=== PATIENT | female | born 1985 | race Caucasian/White ===

== ENCOUNTER 2019-09-29 14:37 | Emergency (ER) | payer SELFPAY ==
--- NOTE | ~2019-09-29 | CT_ITS ---
EXAMINATION: CT abdomen pelvis wo con EXAM DATE: 09/29/2019 15:49 INDICATION: Nausea, diarrhea. Generalized abdominal pain. TECHNIQUE: Spiral CT of the abdomen and pelvis was performed without contrast. Axial, coronal and s agittal images were reviewed. The dose-length product (DLP) for this examination was 1455.45 mGy-cm. The exposure was tailored according to patient size (auto mA exposure control), and iterative recon struction (ASIR) was used as additional dose reduction technique. Comparison is made to prior examina tion from 05/31/2013. FINDINGS: The liver, spleen, adrenal glands and pancreas are unremarkable. Gallbladder is unremarkab le. No biliary obstruction. There is no nephrolithiasis or hydronephrosis. The uterus is unremark able. The bladder is unremarkable. There is no retroperitoneal or pelvic lymphadenopathy. Small umbilical fat-containing hernia, a small pocket of fluid probably in the umbilicus. The appendix is normal. The stomach and small bowel are unremarkable. There is expected amount of c olonic stool. No free intraperitoneal gas. The heart is normal in size. There are no pericardial or pleural effusions. The lung bases are unremarkable. The bones are unremarkable. IMPRESSION: 1. No acute intra-abdominal findings. Reviewed, dictated and finalized at location A.
[2019-09-29 14:39] VITALS: BP 160/104; PULSE 109; RESP 18; TEMP 37.1; O2SAT 100
[2019-09-29 15:16] LABS: Basophils Percent Auto 0.3 % (0.2-1.2); Eosinophils Absolute Auto 0.1 K/mm3 (0-0.3); Eosinophils Percent Auto 0.7 % (0-4.4); Immature Granulocyte Absolute 0.04 K/mm3 (0.00-0.031); Immature Granulocyte Percent A 0.4 % (0-0.5); Lymphocytes Absolute Auto 2.53 K/mm3 (0.9-3.2); Lymphocytes Percent Auto 22.9 % (18.3-44.2); Mean Corpuscular HGB Conc 31.7 g/dl (32-36); Mean Corpuscular Hemoglobin 26.9 pg (26-34); Mean Corpuscular Volume 84.9 fl (80-100); Mean Platelet Volume 12.3 fl (7.4-10.4); Monocytes Absolute Auto 0.6 K/mm3 (0.1-0.6); Monocytes Percent Auto 5.7 % (2.6-8.5); Neutrophils Absolute Auto 7.8 K/mm3 (1.3-6.7); Platelet Count Result 290 k/mm3 (150-375); Red Blood Count 4.83 M/mm3 (4.2-5.4); Red Cell Distribution Width 13.6 % (11.5-14.5); White Blood Count 11.1 K/mm3 (4.5-10.0)
[2019-09-29 15:20] LABS: Add Urine Microscopic? YES; Appearance Urine Cloudy (Clear); Bacteria Urine Trace /hpf; Bilirubin Urine Negative (Negative); Blood Urine Negative (Negative); Color Urine Yellow (Yellow); Glucose Urine UA Negative (Negative); Ketones Urine Negative (Negative); Leukocyte Esterase Ur 2+ LEU/UL (Negative); Mucus Urine Rare /lpf; Nitrate Urine Negative (Negative); Protein Urine Negative (Negative); RBC Urine 0-2 /hpf (0-2); Specific Grav Ur 1.026 (1.001-1.035); Squamous Epithelial Cell Urine Many /hpf (Few); Urobilinogen Urine Negative mg/dL (<2.0); WBC Urine 16-20 /hpf
[2019-09-29 15:29] LABS: Alanine Aminotransferase 13 U/L (4-35); Albumin Level 4.3 g/dL (3.5-5.1); Alkaline Phosphatase 98 U/L (38-126); Aspartate Amino Transferase 19 U/L (14-36); Bilirubin,Total 0.2 mg/dL (0.2-1.3); Blood Urea Nitrogen 14 mg/dL (7-17); Calcium 9.3 mg/dL (8.4-10.2); Carbon Dioxide 28 mmol/L (22-30); Chloride 105 mmol/L (98-107); Estimated CRCL calculation 123 ml/min; Estimated Glomerular Filt Rate > 60; Glucose 94 mg/dL (65-105); Lipase 56 U/L (23-300); Potassium 3.7 mmol/L (3.4-5.0); Sodium 138 mmol/L (137-145)
--- NOTE | 2019-09-29 15:30 | ED.ABDPAIN ---
HPI - Abdominal Pain General Chief Complaint: Abdominal Pain Stated Complaint: abdominal pain Time Seen by Provider: 09/29/19 14:47 Source: RN notes reviewed History of Present Illness HPI narrative: Patient presents emergency department from home for abdominal pain. Patient states that for the past month she has been having intermittent abdominal pain. Patient states the pain is described as a pressure across her upper abdomen associated with diarrhea and nausea. She states that no current pain at this time she was seen by her PCP and had blood work-up but no imaging. She denies any fevers or chills shortness of breath or any other symptoms at this time Related Data Home Medications Medication Instructions Recorded Confirmed cholecalciferol (vitamin D3) 25 mcg PO DAILY 09/29/19 [Vitamin D3] ergocalciferol (vitamin D2) 1,250 mcg PO WEEKLY 09/29/19 sertraline 25 mg PO DAILY 09/29/19 Allergies Allergy/AdvReac Type Severity Reaction Status Date / Time iodine Allergy Mild Hives Verified 09/29/19 14:42 Iodinated Contrast Media Allergy Unknown Hives Verified 09/29/19 14:42 Contrast Media Allergy Unknown Hives Uncoded 09/29/19 14:42 Review of Systems Review of Systems: Narrative: Gen.: Denies fevers or chills ENT: Denies congestion Respiratory: Denies shortness of breath or cough CV: Denies chest pain or palpitations GI: See HPI denies burning, urgency, frequency or hematuria Musculoskeletal: Denies back pain or muscle pain Neuro: Denies numbness, tingling, weakness or focal weakness Skin: Denies rash Except as documented, all other systems reviewed and negative PMF Past Medical History Medical History (Updated 09/29/19 @ 16:51 by Huseyin No DO) Patient denies significant medical history Family History Family History (Updated 01/03/14 @ 07:13 by DOCTOR UNKNOWN) Mother Family history of mental disorder Depression Hypertension Family history of elevated blood lipids Father Hypertension Malignant neoplasm of prostate Grandparent Carcinoma of colon Family history of lung cancer Family history of malignant neoplasm of brain Diabetes mellitus Acute myocardial infarction Social History Social History (Updated 09/29/19 @ 15:31 by Huseyin No DO) Smoking status: Never smoker Alcohol intake: never Exam Narrative: Exam Narrative: APPEARANCE: No acute distress, nontoxic, resting in bed HEENT: Normocephalic, atraumatic, OMM RESPIRATORY: No respiratory distress, clear to auscultation bilaterally with no rhonchi wheezing or rales CARDIOVASCULAR: RRR s murmur ABDOMINAL: Soft, nondistended, tender palpation in right upper quadrant, no tenderness left lower quadrant right lower quadrant left lower quadrant no rebound or guarding MUSCULOSKELETAl: Moves all extremities. No clubbing, cyanosis or edema. NEURO: Awake and alert. Following commands, speech normal, no focal deficits SKIN:: Warm, dry. Normal Color PSYCHIATRIC: Normal affect/mood Course Course Emergency Course: . Repeat abdominal exam shows the patient's abdomen to be soft and nontender. Discussed with patient results of workup and diagnosis. Discussed need for follow-up with primary care physician, reasons to return to the emergency department in proper use of medication. Patient understands and agrees to current treatment plan Vital Signs Vital signs: Vital Signs Temperature 98.7 F 09/29/19 14:39 Pulse Rate 109 H 09/29/19 14:39 Respiratory Rate 18 09/29/19 14:39 Blood Pressure 160/104 H 09/29/19 14:39 Pulse Oximetry 100 09/29/19 14:39 Temperature 98.7 F 09/29/19 14:39 Pulse Rate 109 H 09/29/19 14:39 Respiratory Rate 18 09/29/19 14:39 Blood Pressure 160/104 H 09/29/19 14:39 Pulse Oximetry 100 09/29/19 14:39 MDM - Abdominal Pain MDM Narrative Medical decision making narrative: Patient's abdomen is soft without significant pain or signs of surgical abdomen on serial exams. Lab
--- NOTE | 2019-09-29 16:14 | ECG_ITS ---
Measurements Intervals [place] Rate: 84 P: 40 SD: 162 QRS: 31 QRSD: 96 T: 17 QT: 343 QTc: 406 Interpretive Statements SINUS RHYTHM INCOMPLETE RIGHT BUNDLE BRANCH BLOCK BASELINE ARTIFACT- I, II, AVR BORDERLINE ECG Electronically Signed On 09-29-2019 16:40:40 CDT by Conrad Lantigua D.O.
[2019-09-29] MEDS: NITROFURANTOIN MONOHYD MACROCR 100 MG CAP PO (17:00)
[2019-09-29 17:10] VITALS: BP 148/97; PULSE 76; RESP 18; O2SAT 98
== END 2019-09-29 17:12 | disposition home or self-care (01) ==
PROVIDERS: Emergency Provider Emergency Medicine; PCP Physician Assistant
DX: N39.0 Urinary tract infection, site not specified (principal); R10.10 Upper abdominal pain, unspecified; I45.10 Unspecified right bundle-branch block
CPT/HCPCS: 36415; 74176; 80053; 81001; 81025; 83690; 85025; 87086; 87088; 93005; 99284; A9270

== ENCOUNTER 2020-01-04 12:27 | Emergency (ER) | payer SELFPAY ==
[2020-01-04 12:35] VITALS: BP 135/82; PULSE 88; RESP 16; TEMP 36.9; O2SAT 100
--- NOTE | 2020-01-04 12:54 | ED.URI ---
HPI - URI/Sore Throat General Chief Complaint: Upper Respiratory Infection Stated Complaint: sore throat/fever Source: patient Mode of arrival: ambulatory Limitations: no limitations History of Present Illness HPI Narrative: Patient is a 34-year-old female who presents complaining of sore throat, fever, rhinorrhea and ear pain x2 to 3 days. She reports mild body aches. Denies cough, shortness of breath, nausea, vomiting or diarrhea. She denies any known exposure to COVID. She reports taking [id number] meds MD elicited complaint: sore throat Related Data Home Medications Medication Instructions Recorded Confirmed cholecalciferol (vitamin D3) 25 mcg PO DAILY 09/29/19 01/04/20 [Vitamin D3] sertraline 25 mg PO DAILY 09/29/19 01/04/20 Allergies Allergy/AdvReac Type Severity Reaction Status Date / Time iodine Allergy Mild Hives Verified 01/04/20 12:43 Iodinated Contrast Media Allergy Unknown Hives Verified 01/04/20 12:43 Contrast Media Allergy Unknown Hives Uncoded 09/29/19 14:42 Review of Systems Review of Systems: Narrative: CONSTITUTIONAL: Denies fever, chills, or sweats. EYES: Denies visual changes, redness, or discharge. ENT: Reports rhinorrhea, congestion, sore throat, and bilateral otalgia. CARDIOVASCULAR: Denies chest pain, palpitations, or edema. RESPIRATORY: Denies cough or dyspnea. GASTROINTESTINAL: Denies abdominal pain, nausea, vomiting, or diarrhea. GENITOURINARY: Denies dysuria or hematuria. SKIN: Denies rash or itching. MUSCULOSKELETAL: Denies back pain, joint pain, or myalgia. NEUROLOGIC: Denies headache, numbness, dizziness, or weakness. PSYCHIATRIC: Denies anxiety or depression. [facility] Past Medical History Medical History Patient denies significant medical history Family History Family History Mother Family history of mental disorder Depression Hypertension Family history of elevated blood lipids Father Hypertension Malignant neoplasm of prostate Grandparent Carcinoma of colon Family history of lung cancer Family history of malignant neoplasm of brain Diabetes mellitus Acute myocardial infarction Social History Social History Smoking status: Never smoker Alcohol intake: never Exam Narrative: Exam Narrative: GENERAL: Well-appearing, well-nourished, and in no acute distress. HEAD: Normocephalic, atraumatic. EYES: EOMI. No redness or drainage. Conjunctiva are normal. ENT: Mucous membranes pink and moist. Nares clear. Clear rhinorrhea. TMs normal bilaterally. Throat mild erythema, no edema or exudate l. Uvula midline. NECK: AROM. Supple. No lymphadenopathy. CHEST: No respiratory distress. Clear to auscultation. HEART: Regular rate and rhythm. No murmur appreciated. Normal peripheral pulses. EXTREMITIES: Normal range of motion. No edema. SKIN: Warm, dry, no rash. NEURO: No focal deficits. Alert and oriented x3. Gait steady. PSYCH: Normal affect. No signs of depression or anxiety. Course Vital Signs Vital signs: Vital Signs Temperature 36.9 C 01/04/20 12:35 Pulse Rate 88 01/04/20 12:35 Respiratory Rate 16 01/04/20 12:35 Blood Pressure 135/82 01/04/20 12:35 Pulse Oximetry 100 01/04/20 12:35 Temperature 36.9 C 01/04/20 12:35 Pulse Rate 88 01/04/20 12:35 Respiratory Rate 16 01/04/20 12:35 Blood Pressure 135/82 01/04/20 12:35 Pulse Oximetry 100 01/04/20 12:35 Reviewed. Patient has been instructed to follow-up with her PCP regarding her blood pressure. MDM - URI/Sore Throat MDM Narrative Medical decision making narrative: Patient's rapid strep negative. Patient to have COVID testing. Patient aware of quarantining, scheduling of COVID testing to be completed by registration. Patient is stable for discharge home with outpatient follow-up as needed. Dif
== END 2020-01-04 13:16 | disposition home or self-care (01) ==
PROVIDERS: Emergency Provider Nurse Practitioner; PCP Physician Assistant
DX: J06.9 Acute upper respiratory infection, unspecified (principal); Z20.828 Contact with and (suspected) exposure to other viral communicable diseases
CPT/HCPCS: 87081; 87880; 99213; G0463

== ENCOUNTER 2020-03-11 18:59 | Emergency (ER) | payer SELFPAY ==
--- NOTE | ~2020-03-11 | XR_ITS ---
EXAMINATION: XR chest 2V DATE: 03/11/2020 20:04 INDICATION: Chest pain. Palpitations. TECHNIQUE: Frontal and lateral views of the chest were obtained. COMPARISON: Chest 2 views 03/15/2016, CT abdomen and pelvis 09/29/2019 FINDINGS: The chest demonstrates clear lungs without pneumonia, pleural effusion, or pneumothorax. Th e heart size is normal. IMPRESSION: 1. No acute cardiopulmonary disease. Reviewed, dictated and finalized at location A. IESEL PRODUCT MANAGER
[2020-03-11 19:02] VITALS: BP 165/102; PULSE 113; RESP 18; TEMP 36.4; O2SAT 100
--- NOTE | 2020-03-11 19:05 | ECG_ITS ---
Measurements Intervals [place] Rate: 96 P: 33 SC: 142 QRS: 31 QRSD: 93 T: 26 QT: 333 QTc: 421 Interpretive Statements SINUS RHYTHM NORMAL ECG Electronically Signed On 03-11-2020 19:21:26 ELECTRIC REFRIGERATOR SERVICER by Conrad Lantigua D.O.
[2020-03-11 19:16] LABS: Basophils Percent Auto 0.3 % (0.2-1.2); Eosinophils Absolute Auto 0.2 K/mm3 (0-0.3); Eosinophils Percent Auto 1.6 % (0-4.4); Hematocrit 42.1 % (37.0-47.0); Hemoglobin 13.6 g/dL (12.0-15.0); Immature Granulocyte Absolute 0.04 K/mm3 (0.00-0.031); Immature Granulocyte Percent A 0.4 % (0-0.5); Lymphocytes Absolute Auto 2.69 K/mm3 (0.9-3.2); Lymphocytes Percent Auto 27.3 % (18.3-44.2); Mean Corpuscular HGB Conc 32.3 g/dl (32-36); Mean Corpuscular Hemoglobin 27.4 pg (26-34); Mean Corpuscular Volume 84.9 fl (80-100); Mean Platelet Volume 11.1 fl (7.4-10.4); Monocytes Absolute Auto 0.7 K/mm3 (0.1-0.6); Neutrophils Absolute Auto 6.3 K/mm3 (1.3-6.7); Neutrophils Percent Auto 63.4 % (45.5-73.1); Platelet Count Result 280 k/mm3 (150-375); Red Blood Count 4.96 M/mm3 (4.2-5.4); Red Cell Distribution Width 13.4 % (11.5-14.5); White Blood Count 9.9 K/mm3 (4.5-10.0)
[2020-03-11 19:32] LABS: Anion Gap 10 mmol/L (8-16); Blood Urea Nitrogen 16 mg/dL (7-17); Calcium 9.5 mg/dL (8.4-10.2); Carbon Dioxide 27 mmol/L (22-30); Chloride 102 mmol/L (98-107); Estimated CRCL calculation 136 ml/min; Estimated Glomerular Filt Rate > 60; Glucose 110 mg/dL (65-105); Potassium 3.8 mmol/L (3.4-5.0); Sodium 139 mmol/L (137-145)
[2020-03-11 19:33] LABS: Prothrombin Time 13.7 Seconds (11.1-14.7)
[2020-03-11 19:34] LABS: Partial Thromboplastin Time 29.8 SECONDS (22.3-36.8)
[2020-03-11 19:52] LABS: Troponin I < 0.012 ng/mL (0.000-0.034)
--- NOTE | 2020-03-11 20:00 | ED.CHESTPAIN ---
HPI - Chest Pain General Chief Complaint: Chest Pain Stated Complaint: dizzy, high blood pressure, chest pain Time Seen by Provider: 03/11/20 20:00 Source: patient Mode of arrival: ambulatory Limitations: no limitations History of Present Illness HPI narrative: Patient is a 35-year-old female with a history of anxiety who presents for evaluation of chest pain, dizziness, anxiety. Patient states that she has felt unwell over the past several months, especially over the past 2 months she has had intermittent chest pain with intermittent dizziness. Patient states that she noticed her blood pressure was high this evening after checking it at home, this made her anxiety increased which made her chest pain worsen. Patient currently denies any chest pain or shortness of breath. Dizziness is mild. Patient was able to drive herself to the ER and has been able to ambulate without difficulty. She denies vision changes, focal numbness, headache. She denies any current chest pain or shortness of breath. Patient states she has had work-ups done by her primary care physician as well as a concrete batch plant operator recently that have all been negative. She denies leg swelling, calf pain. No recent fever, chills, loss of sense of taste or smell recent sick contacts. Related Data Home Medications Medication Instructions Recorded Confirmed cholecalciferol (vitamin D3) 25 mcg PO DAILY 09/29/19 01/04/20 [Vitamin D3] sertraline 25 mg PO DAILY 09/29/19 01/04/20 Allergies Allergy/AdvReac Type Severity Reaction Status Date / Time iodine Allergy Mild Hives Verified 01/04/20 12:43 Iodinated Contrast Media Allergy Unknown Hives Verified 01/04/20 12:43 Contrast Media Allergy Unknown Hives Uncoded 09/29/19 14:42 Review of Systems Review of Systems: Narrative: CONSTITUTIONAL: Denies fever, chills, or sweats. EYES: Denies visual changes, redness, or discharge. ENT: Denies rhinorrhea, congestion, sore throat, or otalgia. CARDIOVASCULAR: Denies current chest pain, palpitations, or edema. RESPIRATORY: Denies cough or dyspnea. GASTROINTESTINAL: Denies abdominal pain, nausea, vomiting, or diarrhea. GENITOURINARY: Denies dysuria or hematuria. SKIN: Denies rash or itching. MUSCULOSKELETAL: Denies back pain, joint pain, or myalgia. NEUROLOGIC: Denies headache, numbness, or weakness. Reports mild dizziness. No spinning sensation. [facility] Past Medical History Medical History Anxiety Patient denies significant medical history Family History Family History Mother Family history of mental disorder Depression Hypertension Family history of elevated blood lipids Father Hypertension Malignant neoplasm of prostate Grandparent Carcinoma of colon Family history of lung cancer Family history of malignant neoplasm of brain Diabetes mellitus Acute myocardial infarction Social History Social History Smoking status: Never smoker Alcohol intake: never Exam Narrative: Exam Narrative: GENERAL: Awake, alert, conversant HEAD: Normocephalic, atraumatic. EYES: PERRLA and EOMI. ENT: Nares clear, no rhinorrhea or epistaxis. Mucous membranes moist. NECK: Supple. CHEST: No respiratory distress, breathing even and non labored HEART: Regular rate, sinus rhythm ABDOMEN:Non distended, non tender EXTREMITIES: Normal range of motion. No edema. SKIN: Warm, dry, no rash. NEURO:No focal deficits. Alert and oriented x3. Finger to nose intact bilaterally. EOMs intact without nystagmus. No facial droop/asymmetry noted bilaterally. Grimace intact. Intact sensation in face. Hearing intact bilaterally. Shoulder shrug intact. Strength 5/5 bilateral upper extremities. Strength 5/5 bilateral lower extremities. Reflexes 2+ patellar. Heel to roman intact bilaterally. Ambulatory with a narrow base, steady gait. No ataxia.
[2020-03-11] MEDS: ASPIRIN 81 MG CHEWABLE TABLET 324 MG PO (20:35)
[2020-03-11] MEDS: MECLIZINE HCL 25 MG TABLET PO (20:40)
[2020-03-11 20:43] VITALS: BP 131/93; PULSE 80; RESP 18; O2SAT 99
[2020-03-11 20:55] LABS: D Dimer 0.35 ug/mL (<0.48)
[2020-03-11] MEDS: SODIUM CHLORIDE 0.9% IV 1,000 ML 999 ML IV CONT (21:04)
[2020-03-11 22:22] VITALS: BP 127/78; PULSE 81; RESP 20; O2SAT 98
== END 2020-03-11 22:27 | disposition home or self-care (01) ==
PROVIDERS: Emergency Provider Emergency Medicine; PCP Physician Assistant
DX: R07.89 Other chest pain (principal); R42 Dizziness and giddiness; F41.9 Anxiety disorder, unspecified
CPT/HCPCS: 36415; 71046; 80048; 84484; 85025; 85380; 85610; 85730; 93005; 96360; 99284; A9270; J7030

== ENCOUNTER 2020-05-12 18:32 | Emergency (ER) | payer SELFPAY ==
--- NOTE | ~2020-05-12 | CT_ITS ---
EXAMINATION: CT abdomen pelvis wo con EXAM DATE: 05/12/2020 20:47 INDICATION: Nausea and generalized abdominal pain. TECHNIQUE: Spiral CT of the abdomen and pelvis was performed without contrast. Axial, coronal and s agittal images were reviewed. The dose-length product (DLP) for this examination was 1459.31 mGy-cm. The exposure was tailored according to patient size (auto mA exposure control), and iterative recon struction (ASIR) was used as additional dose reduction technique. Comparison is made to prior examina tion from 09/29/2019. FINDINGS: The liver, spleen, adrenal glands and pancreas are unremarkable. Gallbladder is unremarkab le. No biliary obstruction. There is no nephrolithiasis or hydronephrosis. The uterus is unremark able. The bladder is unremarkable. There is no retroperitoneal or pelvic lymphadenopathy. Some sca rring along section incision site. The appendix is normal. The stomach and small bowel are unremarkable. There is expected amount of c olonic stool. No free intraperitoneal gas. The heart is normal in size. There are no pericardial or pleural effusions. The lung bases are unremarkable. The bones are unremarkable. IMPRESSION: 1. No acute intra-abdominal findings. Reviewed, dictated and finalized at location A. OGY DEPARTMENT CHAIR
[2020-05-12 18:38] VITALS: BP 155/97; PULSE 99; RESP 18; TEMP 36.7; O2SAT 100
--- NOTE | 2020-05-12 18:59 | ECG_ITS ---
Measurements Intervals [place] Rate: 77 P: 30 NE: 143 QRS: 60 QRSD: 91 T: 37 QT: 363 QTc: 413 Interpretive Statements SINUS RHYTHM NORMAL ECG Electronically Signed On 05-12-2020 19:46:20 CONCRETE ANALYST by Conrad Lantigua D.O.
[2020-05-12 19:37] LABS: Basophils Percent Auto 0.3 % (0.2-1.2); Eosinophils Absolute Auto 0.1 K/mm3 (0-0.3); Eosinophils Percent Auto 1.2 % (0-4.4); Hematocrit 43.1 % (37.0-47.0); Hemoglobin 13.9 g/dL (12.0-15.0); Immature Granulocyte Absolute 0.04 K/mm3 (0.00-0.031); Immature Granulocyte Percent A 0.4 % (0-0.5); Lymphocytes Absolute Auto 2.66 K/mm3 (0.9-3.2); Lymphocytes Percent Auto 25.6 % (18.3-44.2); Mean Corpuscular HGB Conc 32.3 g/dl (32-36); Mean Corpuscular Volume 86.7 fl (80-100); Mean Platelet Volume 11.5 fl (7.4-10.4); Monocytes Absolute Auto 0.7 K/mm3 (0.1-0.6); Neutrophils Absolute Auto 6.8 K/mm3 (1.3-6.7); Neutrophils Percent Auto 65.5 % (45.5-73.1); Platelet Count Result 312 k/mm3 (150-375); Red Blood Count 4.97 M/mm3 (4.2-5.4); Red Cell Distribution Width 13.1 % (11.5-14.5); White Blood Count 10.4 K/mm3 (4.5-10.0)
--- NOTE | 2020-05-12 19:39 | ED.GENADULT ---
HPI - General Adult General Chief complaint: Nausea/Vomiting/Diarrhea Stated complaint: Chest pain / weakness Time Seen by Provider: 05/12/20 18:43 Source: patient Mode of arrival: ambulatory Limitations: no limitations History of Present Illness HPI narrative: This patient is a 35 year old female with history of anxiety who presents for evaluation of dizziness, headaches, palpitation and abdominal pain. Patient states she is being evaluated by cardiology for several months due to palpitations. She states over the past 2 days she is having intermittent frontal headaches with nausea. She also reports intermittent dizziness. She states today she started feeling flushed, nauseated and dizzy. She also reports she felt like her heart was racing. She also reports intermittent right side abdominal pain. She denies vomiting, diarrhea or fever. On review of records, she has been evaluated multiple times for dizziness and palpitations. Related Data Home Medications Medication Instructions Recorded Confirmed cholecalciferol (vitamin D3) 25 mcg PO DAILY 09/29/19 01/04/20 [Vitamin D3] sertraline 25 mg PO DAILY 09/29/19 01/04/20 Allergies Allergy/AdvReac Type Severity Reaction Status Date / Time iodine Allergy Mild Hives Verified 05/12/20 18:48 Iodinated Contrast Media Allergy Unknown Hives Verified 05/12/20 18:48 Contrast Media Allergy Unknown Hives Uncoded 05/12/20 18:48 Review of Systems Review of Systems: All systems reviewed & are unremarkable except as noted in HPI and below Constitutional: Constitutional: Denies chills and Denies fever(s) Eyes: Eyes: Denies change in vision ENT: Reports dizziness Cardiovascular: Cardiovascular: Denies chest pain and Reports rapid heart rate Respiratory: Respiratory: Denies cough and Denies dyspnea Gastrointestinal: Gastrointestinal: Reports abdominal pain and Reports nausea Neurologic: Reports dizziness, Reports headache(s) and Denies numbness PMFSH Past Medical History Medical History Anxiety Patient denies significant medical history Family History Family History Mother Family history of mental disorder Depression Hypertension Family history of elevated blood lipids Father Hypertension Malignant neoplasm of prostate Grandparent Carcinoma of colon Family history of lung cancer Family history of malignant neoplasm of brain Diabetes mellitus Acute myocardial infarction Social History Social History Smoking status: Never smoker Alcohol intake: never Gender identity (if verbalized by the patient): Female Exam Narrative: Exam Narrative: GENERAL: Well-appearing, well-nourished, and in no acute distress. HEAD: Normocephalic, atraumatic EYES: PERRLA and EOMI, conjunctiva clear without discharge EARS: TM's clear bilaterally without erythema or dullness NOSE: Nares clear, no rhinorrhea or epistaxis THROAT:Mucous membranes moist, Oropharynx normal without erythema, exudate, peritonsillar swelling or fluctuance NECK: Supple, without lymphadenopathy or mass RESPIRATORY: No respiratory distress, Airway patent, Respirations non-labored, Clear to auscultation without rales, rhonchi or wheeze HEART: Regular rate and rhythm. No murmur heard. Normal peripheral pulses. ABDOMEN: Soft, lower abdomen, nondistended, normal active bowel sounds. No masses. No rebound or guarding, No organomegaly. EXTREMITIES: No edema, normal strength with full range of motion. SKIN: Warm, dry, normal color without rash NEURO: Alert and oriented x3. CN 2-12 grossly intact. No focal deficits. PSYCH: Normal mood and affect. Course Reevaluation(s) Reevaluation #1: PAtient states she feels better. I discussed labs are unremarkable. she will continue to follow up with PCP and employment instructional associate. Her covid
[2020-05-12 19:41] LABS: Add Urine Microscopic? YES; Appearance Urine Clear (Clear); Bilirubin Urine Negative (Negative); Blood Urine Negative (Negative); Color Urine Yellow (Yellow); Glucose Urine UA Negative (Negative); Ketones Urine Negative (Negative); Leukocyte Esterase Ur Negative LEU/UL (Negative); Mucus Urine Rare /lpf; Nitrate Urine Negative (Negative); Protein Urine 1+ mg/dL (Negative); RBC Urine 0-2 /hpf (0-2); Squamous Epithelial Cell Urine Many /hpf (Few); Urobilinogen Urine Negative mg/dL (<2.0); WBC Urine 0-3 /hpf
[2020-05-12 19:42] LABS: Specific Grav Ur 1.033 (1.001-1.035)
[2020-05-12 19:46] LABS: Alanine Aminotransferase 16 U/L (4-35); Alkaline Phosphatase 105 U/L (38-126); Anion Gap 6 mmol/L (8-16); Aspartate Amino Transferase 23 U/L (14-36); Bilirubin,Total 0.2 mg/dL (0.2-1.3); Blood Urea Nitrogen 19 mg/dL (7-17); Calcium 8.7 mg/dL (8.4-10.2); Carbon Dioxide 28 mmol/L (22-30); Chloride 106 mmol/L (98-107); Estimated CRCL calculation 117 ml/min; Estimated Glomerular Filt Rate > 60; Glucose 99 mg/dL (65-105); INR 0.9; Magnesium 1.7 mg/dL (1.6-2.3); Potassium 3.5 mmol/L (3.4-5.0); Prothrombin Time 12.9 Seconds (11.1-14.7); Sodium 140 mmol/L (137-145)
[2020-05-12 19:47] LABS: Partial Thromboplastin Time 28.8 SECONDS (22.3-36.8)
[2020-05-12 19:53] LABS: D Dimer 0.27 ug/mL (<0.48)
[2020-05-12 19:57] LABS: Troponin I < 0.012 ng/mL (0.000-0.034)
[2020-05-12] MEDS: SODIUM CHLORIDE 0.9% IV 1,000 ML 999 ML IV CONT (20:16)
[2020-05-12] MEDS: diphenhydrAMINE HCl INJ 50 MG/ML VIAL IV PUSH (20:16)
[2020-05-12] MEDS: METOCLOPRAMIDE HCL INJ 10 MG/2 ML VIAL IV PUSH (20:16)
[2020-05-12 20:17] VITALS: BP 154/98; PULSE 98; RESP 20; O2SAT 97
[2020-05-12 23:11] VITALS: BP 148/82; PULSE 89; RESP 18; O2SAT 98
[2020-05-13 19:42] LABS: SARS-CoV-2 RNA PCR Negative
== END 2020-05-12 23:13 | disposition home or self-care (01) ==
PROVIDERS: Emergency Provider General Practice; PCP Physician Assistant
DX: R42 Dizziness and giddiness (principal); R00.2 Palpitations; R10.31 Right lower quadrant pain; R10.32 Left lower quadrant pain; Z20.822 Contact with and (suspected) exposure to COVID-19; F41.9 Anxiety disorder, unspecified
CPT/HCPCS: 36415; 74176; 80053; 81001; 81025; 83735; 84484; 85025; 85380; 85610; 85730; 93005; 96361; 96374; 96375; 99284; C9803; J1200; J2765; J7030; U0003

== ENCOUNTER 2020-11-30 22:31 | Emergency (ER) | payer SELFPAY ==
[2020-11-30 22:41] VITALS: BP 143/95; PULSE 84; RESP 18; TEMP 36.6; O2SAT 100
--- NOTE | 2020-12-01 00:41 | ED.SKABFB ---
HPI - Skin/Abscess/Foreign Bdy General Chief complaint: Skin/Abscess/Foreign Body Stated complaint: knot on leg Time Seen by Provider: 12/01/20 00:28 Source: patient and RN notes reviewed Mode of arrival: ambulatory Limitations: no limitations History of Present Illness HPI narrative: This is a 35 year old female who presents for evaluation of left lower leg red nodule. She states yesterday she noticed what feels to be small bump on her left anterior lower leg. She came to ER because she has developed some redness and increased swelling. She states it does not hurt. She thinks she may have gotten bit by an insect but she is unsure. She denies fever, chills, nasuea, vomiting chest pain or sob. She denies any other knots or rash. Related Data Home Medications Medication Instructions Recorded Confirmed cholecalciferol (vitamin D3) 25 mcg PO DAILY 09/29/19 01/04/20 [Vitamin D3] sertraline 25 mg PO DAILY 09/29/19 01/04/20 Allergies Allergy/AdvReac Type Severity Reaction Status Date / Time iodine Allergy Mild Hives Verified 12/01/20 00:07 Iodinated Contrast Media Allergy Unknown Hives Verified 12/01/20 00:07 Contrast Media Allergy Unknown Hives Uncoded 12/01/20 00:07 Review of Systems Review of Systems: All systems reviewed & are unremarkable except as noted in HPI and below PMFSH Past Medical History Medical History Anxiety Patient denies significant medical history Family History Family History Mother Family history of mental disorder Depression Hypertension Family history of elevated blood lipids Father Hypertension Malignant neoplasm of prostate Grandparent Carcinoma of colon Family history of lung cancer Family history of malignant neoplasm of brain Diabetes mellitus Acute myocardial infarction Social History Social History Smoking status: Never smoker Alcohol intake: never Gender identity (if verbalized by the patient): Female Exam Const: General: no acute distress and alert Nutritional Appearance: obese Orientation/consciousness: patient oriented x3 Eyes: EOM: EOMs intact bilaterally Resp: Effort & Inspection: normal respiratory effort and no retractions Auscultation: clear to auscultation bilaterally Cardio: Rate: regular rate Rhythm: regular rhythm Heart sounds: no murmurs Skin: Other: left lower anterior leg with 3 cm area of redness with central firm nodule, no drainage Neuro: General: patient oriented x3 and moves all extremities Psych: Mental Status: mental status grossly normal Affect: normal affect Course Reevaluation(s) Reevaluation #1: I have discussed with patient this may be insect bite of infected hair follicle. I Discussed discharge plan and management. This is located anteriorly and not along vein so this is unlikely DVT as patient was also concerned about. Date: 12/01/20 Time: 00:44 Vital Signs Vital signs: Vital Signs Temperature 97.8 F 11/30/20 22:41 Pulse Rate 84 11/30/20 22:41 Respiratory Rate 18 11/30/20 22:41 Blood Pressure 143/95 H 11/30/20 22:41 Pulse Oximetry 100 11/30/20 22:41 Temperature 97.8 F 11/30/20 22:41 Pulse Rate 84 11/30/20 22:41 Respiratory Rate 18 11/30/20 22:41 Blood Pressure 143/95 H 11/30/20 22:41 Pulse Oximetry 100 11/30/20 22:41 Discharge Plan Discharge Clinical Impression: Cellulitis of left leg without foot Patient Disposition: Home, Self-Care Condition: Stable Instructions: Antibiotic Form, Cellulitis (ED), Folliculitis (ED) Additional Instructions: Apply warm compress to area of concern. Take antibiotics as prescribed. Take ibuprofen or aleve for your pain. Prescriptions: New cephalexin 500 mg capsule 500 mg PO Q6H 7 Days Qty: 28 RF: 0 No Action sertraline 25 mg Tablet
[2020-12-01] MEDS: CEPHALEXIN 500 MG CAPSULE PO (01:03)
== END 2020-12-01 01:04 | disposition home or self-care (01) ==
PROVIDERS: Emergency Provider General Practice; PCP Physician Assistant
DX: L03.116 Cellulitis of left lower limb (principal); F41.9 Anxiety disorder, unspecified
CPT/HCPCS: 99283; A9270

== ENCOUNTER 2022-03-02 17:48 | Emergency (ER) | payer SELFPAY ==
[2022-03-02 18:08] VITALS: BP 143/87; PULSE 115; RESP 20; TEMP 37.3; O2SAT 99
--- NOTE | 2022-03-02 18:52 | ED.URI ---
HPI - URI/Sore Throat General Chief Complaint: Upper Respiratory Infection Stated Complaint: fever,sorethroat Time Seen by Provider: 03/02/22 18:14 Source: patient Mode of arrival: ambulatory Limitations: no limitations History of Present Illness HPI Narrative: Patient presents today complaining of fever up to 102, body aches, and bilateral ear pain since last night. States 2 of her children were sick last week, but have since improved. Denies cough or sore throat. She has been taking Tylenol with mild relief. Related Data Home Medications Medication Instructions Recorded Confirmed cholecalciferol (vitamin D3) 25 25 mcg PO DAILY 09/29/19 03/02/22 mcg (1,000 unit) tablet (Vitamin D3) sertraline 25 mg tablet 25 mg PO DAILY 09/29/19 03/02/22 krill 1 cap PO DAILY 03/02/22 03/02/22 fmf-[id number]-bgs-agk-dn4-scd-astax 1,500 mg-165 mg-67.5 mg capsule (Krill Oil (Seminary 3 and 6)) metoprolol tartrate 25 mg tablet 25 mg BID 03/02/22 03/02/22 multivit with 1 tablet PO DAILY 03/02/22 03/02/22 qfglhovr-ruap-CZ-lutein 8 mg iron-400 mcg-300 mcg tablet (Multivitamin Women 50 Plus) Allergies Allergy/AdvReac Type Severity Reaction Status Date / Time iodine Allergy Mild Hives Verified 03/02/22 18:42 Iodinated Contrast Media Allergy Unknown Hives Verified 03/02/22 18:42 Contrast Media Allergy Unknown Hives Uncoded 03/02/22 18:42 Review of Systems Review of Systems: CONSTITUTIONAL: Denies chills, or sweats.+ fever, body aches EYES: Denies visual changes, redness, or discharge. ENT: Denies rhinorrhea, congestion, sore throat. +bilateral ear pain CARDIOVASCULAR: Denies chest pain, palpitations, or edema. RESPIRATORY: Denies cough or dyspnea. GASTROINTESTINAL: Denies abdominal pain, nausea, vomiting, or diarrhea. GENITOURINARY: Denies dysuria or hematuria. SKIN: Denies rash, itching, or wounds. MUSCULOSKELETAL: Denies back pain, joint pain, or myalgia. NEUROLOGIC: Denies headache, numbness, tingling, or weakness. PSYCH: Denies depression or anxiety. PMFSH Past Medical History Medical History Anxiety Patient denies significant medical history Family History Family History Mother Family history of mental disorder Depression Hypertension Family history of elevated blood lipids Father Hypertension Malignant neoplasm of prostate Grandparent Carcinoma of colon Family history of lung cancer Family history of malignant neoplasm of brain Diabetes mellitus Acute myocardial infarction Social History Social History Smoking status: Never smoker Alcohol intake: never Gender identity (if verbalized by the patient): Female Comments At time of signature, I have reviewed and agree with nursing past medical, surgical, social and family history unless otherwise noted. Please see nursing chart for further information. There is no relevant family history pertinent to the presenting complaint Exam Narrative: GENERAL: Well-appearing, well-nourished, and in no acute distress. HEAD: Normocephalic, atraumatic. EYES: EOMI. No redness or drainage. Conjunctivae normal. ENT: Mucous membranes pink and moist. Nares clear. No rhinorrhea. Retracted left TM. Right TM normal. Throat normal. Uvula midline. NECK: Normal AROM. Supple. No lymphadenopathy. CHEST: No respiratory distress. Clear to auscultation. HEART: Regular rate and rhythm. No murmur appreciated. Normal peripheral pulses. EXTREMITIES: Normal range of motion. No edema. SKIN: Warm, dry, no rash. Capillary refill normal. Normal skin turgor. NEURO: No focal deficits. Alert and oriented x3. Gait steady. PSYCH: Normal affect. No signs of depression or anxiety. Course Course Level of Care: Express Care Visit Vital Signs Vital signs: Vital Signs Temperature 99.1 F
== END 2022-03-02 18:59 | disposition home or self-care (01) ==
PROVIDERS: Emergency Provider Nurse Practitioner; PCP Physician Assistant
DX: B34.9 Viral infection, unspecified (principal); F41.9 Anxiety disorder, unspecified; K21.9 Gastro-esophageal reflux disease without esophagitis
CPT/HCPCS: 99211; G0463

== ENCOUNTER 2022-04-28 19:06 | Emergency (ER) | payer SELFPAY ==
--- NOTE | ~2022-04-28 | XR_ITS ---
EXAMINATION: XR chest 2V DATE: 04/28/2022 20:05 INDICATION: Cough TECHNIQUE: PA and lateral views of the chest are obtained. COMPARISON: 03/11/2020 FINDINGS: The lungs are free of acute opacities. No pleural effusion or pneumothorax. The cardiomedia stinal silhouette is normal. The visualized bones and soft tissues are unremarkable. IMPRESSION: 1. No acute cardiopulmonary abnormality. Reviewed, dictated and finalized at location F. [employer]
[2022-04-28 19:39] VITALS: BP 143/91; PULSE 109; RESP 20; TEMP 36.6; O2SAT 98
--- NOTE | 2022-04-28 19:53 | ED.URI ---
HPI - URI/Sore Throat General Chief Complaint: Upper Respiratory Infection Stated Complaint: cough Time Seen by Provider: 04/28/22 19:53 Source: patient Mode of arrival: ambulatory Limitations: no limitations History of Present Illness HPI Narrative: 37-year-old female presents with complaint of cough, hoarse voice. Reports that she has been sick for 6 days. Had fever for 3 days. Her kids tested positive for influenza a last week. She has same that she had flu also. Has been treating her symptoms with [id number] medications. States that she has not had any pain, no longer congested or has a fever but cannot get rid of cough. Yhsu-gpe-[id number] cough medication is not helping. Feels winded when she has a coughing fit. All systems reviewed and negative except as noted above. Related Data Home Medications Medication Instructions Recorded Confirmed sertraline 25 mg tablet 25 mg PO DAILY 09/29/19 04/28/22 metoprolol tartrate 25 mg tablet 25 mg BID 03/02/22 04/28/22 Allergies Allergy/AdvReac Type Severity Reaction Status Date / Time Iodinated Contrast Media AdvReac Mild Hives Verified 04/28/22 19:20 iodine AdvReac Mild Hives Verified 04/28/22 19:20 Contrast Media AdvReac Mild Hives Uncoded 04/28/22 19:20 Review of Systems Review of Systems: CONSTITUTIONAL: Denies fever, chills, or sweats. EYES: Denies visual changes, redness, or discharge. ENT: Denies rhinorrhea, congestion, sore throat, or otalgia. CARDIOVASCULAR: Denies chest pain, palpitations, or edema. RESPIRATORY: Reports cough, hoarse voice. Denies dyspnea. GASTROINTESTINAL: Denies abdominal pain, nausea, vomiting, or diarrhea. GENITOURINARY: Denies dysuria or hematuria. SKIN: Denies rash or itching. MUSCULOSKELETAL: Denies back pain, joint pain, or myalgia. NEUROLOGIC: Denies headache, numbness, or weakness. PSYCHIATRIC: Denies anxiety or depression. All other systems reviewed are negative, except as documented in HPI. [facility] Past Medical History Medical History Anxiety Patient denies significant medical history Family History Family History Mother Family history of mental disorder Depression Hypertension Family history of elevated blood lipids Father Hypertension Malignant neoplasm of prostate Grandparent Carcinoma of colon Family history of lung cancer Family history of malignant neoplasm of brain Diabetes mellitus Acute myocardial infarction Social History Social History Smoking status: Never smoker Alcohol intake: never Gender identity (if verbalized by the patient): Female Comments At time of signature, agree with nursing past medical, surgical, social and family history. There is no relevant family history pertinent to the presenting complaint. Exam Narrative: GENERAL: This is a well-nourished, well-developed patient, in no apparent distress. HEAD: normocephalic, atraumatic. EYES: PERRL. Sclera clear/white. Vision is grossly intact. EARS: External ears normal, auditory canals clear and without drainage, TMs normal without perforation. Hearing grossly intact. NOSE: External nose normal with no obvious nasal discharge, nares without redness, no rhinorrhea. THROAT: Mucous membranes moist, posterior pharynx clear. NECK: Neck supple, non-tender without lymphadenopathy, masses or thyromegaly. CARDIOVASCULAR: coarse lung sounds throughout all lung love. Expiratory Wheezing noted to right upper lobe. RESPIRATORY: Clear to auscultation. Breath sounds equal bilaterally. No wheezes, rales, or rhonchi. SKIN: warm, Dry, intact with no suspicious lesions or rash, good texture and turgor. NEURO: awake, alert, and oriented to person, place and time. There were no obvious focal neurologic abnormalities. EXTREMITIES: No joint tenderness, effusio
== END 2022-04-28 20:24 | disposition home or self-care (01) ==
PROVIDERS: Emergency Provider Nurse Practitioner Family; PCP Physician Assistant
DX: J20.9 Acute bronchitis, unspecified (principal); F41.9 Anxiety disorder, unspecified
CPT/HCPCS: 71046; 99213; G0463

== ENCOUNTER 2023-05-23 08:08 | Emergency (ER) | payer OTHER, SELFPAY ==
[2023-05-23 08:35] VITALS: BP 144/103; PULSE 83; RESP 18; TEMP 36.3; O2SAT 96
[2023-05-23 08:59] VITALS: BP 156/99
--- NOTE | 2023-05-23 09:42 | ED.URI ---
HPI - URI/Sore Throat General Chief Complaint: Upper Respiratory Infection Stated Complaint: sorethroat,swollen lymph nodes Time Seen by Provider: 05/23/23 09:36 History of Present Illness HPI Narrative: 38-year-old female presented for complaint of swollen lymph nodes in neck following sore throat and mild left ear pain over the past few days. She denies painful swallow or difficulty breathing or trouble maintaining secretions. She is taking Tylenol and ibuprofen. She denies known sick contacts. Denies any other sick symptoms. Related Data Home Medications Medication Instructions Recorded Confirmed sertraline 25 mg tablet 25 mg PO DAILY 09/29/19 04/28/22 metoprolol tartrate 25 mg tablet 25 mg BID 03/02/22 04/28/22 cholecalciferol (vitamin D3) 50 50 mcg PO DAILY 05/23/23 05/23/23 mcg (2,000 unit) tablet multivit with minerals-iron 18 tablet PO 05/23/23 mg-folic ac 400 mcg-vit K 25 mcg tablet (Adults Multivitamin) omega 6-czz-vbf-fish oil 300 1 cap PO DAILY 05/23/23 05/23/23 mg-1,000 mg capsule (Fish Oil) Allergies Allergy/AdvReac Type Severity Reaction Status Date / Time Iodinated Contrast Media AdvReac Mild Hives Verified 05/23/23 08:54 iodine AdvReac Mild Hives Verified 05/23/23 08:54 Contrast Media AdvReac Mild Hives Uncoded 05/23/23 08:54 Review of Systems Review of Systems: CONSTITUTIONAL: Denies body aches, fever, chills, or sweats. EYES: Denies visual changes, redness, or discharge. ENT: Reports sore throat, lymph node swelling denies rhinorrhea, congestion, or otalgia. CARDIOVASCULAR: Denies chest pain, palpitations, or edema. RESPIRATORY: Denies dyspnea. GASTROINTESTINAL: Denies abdominal pain, nausea, vomiting, or diarrhea. SKIN: Denies rash, itching, or wounds. MUSCULOSKELETAL: Denies back pain, joint pain, or myalgia. NEUROLOGIC: Denies headache PMFSH Past Medical History Medical History Anxiety Patient denies significant medical history Family History Family History Mother Family history of mental disorder Depression Hypertension Family history of elevated blood lipids Father Hypertension Malignant neoplasm of prostate Grandparent Carcinoma of colon Family history of lung cancer Family history of malignant neoplasm of brain Diabetes mellitus Acute myocardial infarction Social History Social History Smoking status: Never smoker Alcohol intake: never Gender identity (if verbalized by the patient): Female Exam Narrative: GENERAL: well-appearing. EYES: conjunctivae clear ENT: Mucous membranes moist. TM pearly graves with normal light reflex bilaterally; no tragal tenderness. Oropharynx erythematous without lesions. Tonsils enlarged 1+ and without exudate. No drooling, no hoarseness, no trismus, uvula midline. No tripod positioning, hot potato voice, or soft palate swelling. NECK: Supple. Bilateral anterior cervical lymphadenopathy CHEST: Clear to auscultation, breath sounds equal. No respiratory distress, speaks in full sentences. HEART: Regular rate and rhythm. No murmur heard. SKIN: Warm, dry, no rash. NEURO: Alert and oriented x3. Course Course Emergency Course: Patient is aware of diagnosis, understands and agrees to treatment plan. Anticipatory guidance given. Patient agrees to follow-up as directed and is aware of reasons to seek care at the emergency department. Portions of this record may have been created with voice recognition software Level of Care: Express Care Visit Vital Signs Vital signs: Vital Signs Temperature 97.3 F L 05/23/23 08:35 Pulse Rate 83 05/23/23 08:35 Respiratory Rate 18 05/23/23 08:35 Blood Pressure 144/103 H 05/23/23 08:35 Pulse Oximetry 96 05/23/23 08:35 Oxygen Delivery Room Air 05/23/23 08:35 Temperature 97.3 F
== END 2023-05-23 09:46 | disposition home or self-care (01) ==
PROVIDERS: Emergency Provider Nurse Practitioner Family; PCP Nurse Practitioner
DX: B34.9 Viral infection, unspecified (principal); R59.1 Generalized enlarged lymph nodes; F41.9 Anxiety disorder, unspecified
CPT/HCPCS: 87081; 87880; 99213; G0463